=== PATIENT | female | born 1980 ===

== ENCOUNTER 2018-01-17 20:31 | Emergency (ER) | payer OTHER ==
[2018-01-17 20:33] VITALS: BP 145/100; PULSE 86; RESP 21; TEMP 98.8; O2SAT 98
--- NOTE | 2018-01-17 20:36 | ED PDOC ---
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 Patient was cutting food when she accidentally cut her wrist. Pressure dressing was applied and patient was brought here by ambulance. Injury occurred about half an hour prior to arrival. Patient states tetanus is not up-to-date. She has pain to affected area with no numbness or tingling. PMD: none Past Medical History Reviewed: Historical Data, Nursing Documentation, Vital Signs Vital Signs: Last Vital Signs Temp 98.8 F 01/17/18 20:32 Pulse 86 01/17/18 20:32 Resp 21 01/17/18 20:32 BP 145/100 H 01/17/18 20:32 Pulse Ox 98 01/17/18 20:44 - Medical History PMH: No Chronic Diseases - Surgical History Surgical History: (x 3) Other surgeries: tubal ligation - Family History Family History: States: No Known Family Hx - Living Arrangements Living Arrangements: With Family - Social History Current smoker - smoking cessation education provided: No Alcohol: None Drugs: Denies - Immunization History Hx Tetanus Toxoid Vaccination: No (not sure of last booster) - Home Medications Home Medications: Ambulatory Orders Medication Instructions Recorded Clindamycin [Cleocin] 300 mg PO QID #28 cap 01/17/18 Ibuprofen [Motrin Tab] 800 mg PO Q8 PRN #20 tab 01/17/18 traMADol [Ultram] 50 mg PO Q6H PRN #15 tab 01/17/18 - Allergies Allergies/Adverse Reactions: Allergies Allergy/AdvReac Type Severity Reaction Status Date / Time No Known Allergies Allergy Verified 01/17/18 20:33 Review of Systems ROS Statement: Except As Marked, All Systems Reviewed And Found Negative Musculoskeletal: Positive for: Other (laceration to left wrist) Physical Exam - Reviewed Nursing Documentation Reviewed: Yes Vital Signs Reviewed: Yes - Physical Exam Appears: Positive for: Well, Non-toxic, No Acute Distress Skin: Positive for: Normal Color. Negative for: Rash Eye Exam: Positive for: Normal appearance Extremity: Positive for: Other (6 cm laceration noted to volar aspect of left wrist, mild active bleeding, full range of motion of left wrist, full range of motion all digits of left hand, neurovascular intact) Neurologic/Psych: Positive for: Alert, Oriented - Laboratory Results Urine POC: Negative (had tubal ligation) - ECG O2 Sat by Pulse Oximetry: 98 Pulse Ox Interpretation: Normal - Other Rad Left wrist x-ray X-Ray: Interpreted by Me, Viewed By Me X-Ray Interpretation: no fx, no dis, no radiopaque FB Medical Decision Making Medical Decision Makin37 year old female with left wrist laceration Plan: Adacel IM Left wrist x-ray Lac repair - patient agrees to laceration repair by story writer. Procedure note: Under sterile conditions laceration to left wrist was anesthetized with 12 mL of 1% lidocaine without epinephrine, good anesthesia was achieved, wound was irrigated copiously with normal saline and Betadine, wound was explored for foreign bodies, no foreign bodies noted. 5-0 nylon uninterrupted running suture used to repair wound, good wound approximation was achieved, good bleeding control was achieved, procedure tolerated well by patient with no acute complications. Bacitracin and sterile gauze applied to affected area. Patient given 1 g IV Ancef along with oral Motrin and tramadol tablet. Prescriptions given for clindamycin, tramadol and Motrin. Wound care instructions provided. Advised wound check 2-3 days and suture removal 14 days. Disposition - Clinical Impression Clinical Impression: Wrist laceration, Requires a booster tetanus - Patient ED Disposition Is Patient to be Admitted: No Counseled Patient/Family Regarding: Studies Performed, Diagnosis, Need For Followup, Rx Given - Disposition Referrals: [facility] [Outside] Disposition: Routine/Home Disposition Time: 21:48 Condition: STABLE Additional Instructions: Keep wound clean and dry. Wash daily with soap and water and apply bacitracin once per day. Keep covered with gauze but airway out several hours per day. Take prescription meds as directed. Wound check 2-3 days, suture removal 14 days. Prescriptions: Clindamycin [Cleocin] 300 mg PO QID #28 cap Ibuprofen [Motrin Tab] 800 mg PO Q8 PRN #20 tab PRN Reason: Pain, Moderate (4-7) traMADol [Ultram] 50 mg PO Q6H PRN #15 tab PRN Reason: Pain, Moderate (4-7) Instructions: Laceration Repair With Stitches (DC), Diphtheria and Tetanus Toxoids, and Acellular Pertussis Vaccine, Wound Care (DC) Forms: [employer] [facility] [facility] (Sinhala) Print Language: CROATIAN
[2018-01-17] MEDS ORDERED: Tdap Vaccine 0.5 ml Vial (10-64 yrs) IM ONE ×2 (20:40→20:50)
--- NOTE | 2018-01-18 09:34 | RAD ---
Date of service: 01/17/2018 PROCEDURE: Left Wrist Radiographs. HISTORY: trauma COMPARISON: None. FINDINGS: BONES: No evidence of acute displaced fracture nor dislocation. JOINTS: Normal. No dislocation. SOFT TISSUES: Radiopaque gauze overlies the left wrist. There appears to be a disruption/ laceration of the volar soft tissues at the level of the left wrist OTHER FINDINGS: No evidence of radiopaque foreign bodies. IMPRESSION: No evidence of acute displaced fracture nor dislocation. disruption/ laceration of the volar soft tissues at the level of the left wrist
== END 2018-01-17 23:49 | disposition home or self-care (01) ==
LOC: H.ER 20:31
DX: S61.512A Laceration without foreign body of left wrist, initial encounter (principal); Z23 Encounter for immunization; W26.0XXA Contact with knife, initial encounter; Y93.G1 Activity, food preparation and clean up
CPT/HCPCS: 12002; 73110; 90471; 90715; 99282; J0690

== ENCOUNTER 2018-01-31 17:37 | Emergency (ER) | payer OTHER ==
[2018-01-31 17:44] VITALS: BP 125/73; PULSE 61; RESP 16; TEMP 98.6; O2SAT 98
--- NOTE | 2018-01-31 18:10 | ED PDOC ---
HPI: Wound Care - HPI Time Seen by Provider: 01/31/18 17:53 Chief Complaint (Nursing): Suture/Staple Removal Chief Complaint (Provider): Suture/Staple Removal History Per: Patient Exam Limitations: no limitations Onset/Duration Of Symptoms: Days (x14) Current Symptoms Are (Timing): Better Additional Complaint(s): 37 y/o female presents to the ED for suture removal of the left wrist. Patient reports of a laceration on wrist with running sutures placed 14 days ago. Patient states pain has improved. Patient reports of taking antibiotics as prescribed. PMD: None Provided Past Medical History Reviewed: Historical Data, Nursing Documentation, Vital Signs Vital Signs: Last Vital Signs Temp 98.6 F 01/31/18 17:42 Pulse 61 01/31/18 17:42 Resp 16 01/31/18 17:42 BP 125/73 01/31/18 17:42 Pulse Ox 98 01/31/18 17:42 - Medical History PMH: No Chronic Diseases - Surgical History Surgical History: (x 3) - Family History Family History: States: Unknown Family Hx - Immunization History Hx Tetanus Toxoid Vaccination: No (not sure of last booster) - Home Medications Home Medications: Ambulatory Orders Medication Instructions Recorded Clindamycin [Cleocin] 300 mg PO QID #28 cap 01/17/18 Ibuprofen [Motrin Tab] 800 mg PO Q8 PRN #20 tab 01/17/18 traMADol [Ultram] 50 mg PO Q6H PRN #15 tab 01/17/18 - Allergies Allergies/Adverse Reactions: Allergies Allergy/AdvReac Type Severity Reaction Status Date / Time No Known Allergies Allergy Verified 01/17/18 20:33 Review of Systems ROS Statement: Except As Marked, All Systems Reviewed And Found Negative Constitutional: Positive for: Other (suture removal ) Physical Exam - Reviewed Nursing Documentation Reviewed: Yes Vital Signs Reviewed: Yes - Physical Exam Appears: Positive for: Non-toxic, No Acute Distress Head Exam: Positive for: ATRAUMATIC Skin: Positive for: Normal Color, Warm Eye Exam: Positive for: Normal appearance Neck: Positive for: Normal Cardiovascular/Chest: Negative for: Bradycardia, Tachycardia Respiratory: Negative for: Respiratory Distress Extremity: Positive for: Normal ROM, Other (9 cm laceration to left anterior, curvilinear. Well healing. No surrounding erythema. No drainage with running suture intact. ). Negative for: Deformity Neurologic/Psych: Positive for: Alert, Oriented. Negative for: Motor/Sensory Deficits - ECG O2 Sat by Pulse Oximetry: 98 (RA) Pulse Ox Interpretation: Normal Medical Decision Making Medical Decision Making: Time: 1749 Plan: -- Sutures easily removed. Three steri strips as well as Telfa kenyatta wrap applied. Scribe Attestation: Documented by Neftali Valle, acting as a scribe for Christal Lay PA-C. Provider Scribe Attestation: All medical record entries made by the Scribe were at my direction and personally dictated by me. I have reviewed the chart and agree that the record accurately reflects my personal performance of the history, physical exam, medical decision making, and the department course for this patient. I have also personally directed, reviewed, and agree with the discharge instructions and disposition. Disposition - Clinical Impression Clinical Impression: Removal of suture - Disposition Disposition: Routine/Home Disposition Time: 18:00 Condition: STABLE Instructions: Stitches Removal Forms: [facility] [facility] (Yakut) Print Language: MALTESE
== END 2018-01-31 21:46 | disposition home or self-care (01) ==
LOC: H.ER 17:37
DX: Z48.02 Encounter for removal of sutures (principal)